=== PATIENT | female | born 1970 | race Hispanic/Latino ===

== ENCOUNTER 2018-06-29 16:27 | Emergency (ER) | payer MEDICAID ==
[2018-06-29 16:36] VITALS: BMI 26.9
[2018-06-29 17:47] LABS: BASO % 0.3 % (0.0-2.0); LYMPH # 1.8 K/uL (1.0-4.3); LYMPH % 13.9 % (20.0-40.0); MEAN CELL VOLUME 73.4 fL (81.0-99.0); MEAN CORPUSCULAR HEMOGLOBIN 22.8 pg (27.0-31.0); MEAN CORPUSCULAR HGB CONC 31.1 g/dL (33.0-37.0); MEAN PLATELET VOLUME 8.3 fL (7.2-11.7); MONO # 0.3 K/uL (0.0-0.8); MONO % 2.2 % (0.0-10.0); NEUT # 11.1 K/uL (1.8-7.0); NEUT % 83.6 % (50.0-75.0); RBC 4.81 Mil/uL (3.80-5.20); RED CELL DISTRIBUTION WIDTH 26.4 % (11.5-14.5); WHITE BLOOD COUNT 13.2 K/uL (4.8-10.8)
[2018-06-29 17:52] LABS: ALB/GLOB RATIO 1.4 (1.0-2.1); ALBUMIN 4.2 g/dL (3.5-5.0); ALT/SGPT 21 U/L (9-52); AST/SGOT 18 U/L (14-36); BLOOD UREA NITROGEN 14 mg/dL (7-17); CALCIUM 9.1 mg/dl (8.6-10.4); GFR NON-AFRICAN AMERICAN > 60
[2018-06-29 17:59] LABS: SQUAMOUS EPITHIAL 1 /hpf (0-5); URINE BACTERIA RARE (<OCC); URINE BILIRUBIN NEGATIVE (NEGATIVE); URINE BLOOD 3+ (NEGATIVE); URINE CLARITY Clear (Clear); URINE COLOR Yellow (YELLOW); URINE GLUCOSE (UA) NORMAL (Normal); URINE LEUKOCYTE ESTERASE NEG Leu/uL (Negative); URINE PROTEIN NEGATIVE (NEGATIVE); URINE UROBILINOGEN NORMAL mg/dL (0.2-1.0)
[2018-06-29 18:40] LABS: BARBITURATES, UR NEGATIVE (NEGATIVE); BENZODIAZEPINES, UR NEGATIVE (NEGATIVE); OPIATES, UR NEGATIVE (NEGATIVE); PHENCYCLIDINE, UR NEGATIVE (NEGATIVE)
--- NOTE | 2018-06-29 18:54 | C.PDOC ---
History Of Present Illness 47-year-old female, presents to the emergency department with complaints of public intoxication. Patient was found on a bench next to sister, intoxicated and EMS was called. Patient denies any HI/SI. Time Seen by Provider: 06/29/18 16:32 Chief Complaint (Nursing): Substance Abuse History Per: Patient History/Exam Limitations: no limitations Past Medical History Reviewed: Historical Data, Nursing Documentation, Vital Signs Vital Signs: Last Vital Signs Temp 98.9 F 06/29/18 18:33 Pulse 107 H 06/29/18 18:33 Resp 18 06/29/18 18:33 BP 109/69 06/29/18 18:33 Pulse Ox 100 06/29/18 18:33 - Medical History PMH: Depression Family History: States: Unknown Family Hx - Social History Hx Alcohol Use: Yes Hx Substance Use: No (Denied) - Immunization History Hx Tetanus Toxoid Vaccination: No Hx Influenza Vaccination: No (Unobtainable) Hx Pneumococcal Vaccination: No (Unobtainable) Review Of Systems Constitutional: Negative for: Fever, Chills Respiratory: Negative for: Shortness of Breath Gastrointestinal: Negative for: Nausea, Vomiting Neurological: Negative for: Weakness, Numbness Psych: Negative for: Psychosis, Suicidal ideation, Withdrawal Physical Exam - Physical Exam Appears: Non-toxic, No Acute Distress Skin: Warm, Dry, No Rash Head: Atraumatic Eye(s): bilateral: Normal Inspection Nose: Normal Oral Mucosa: Moist Lips: Normal Appearing Neck: Normal ROM Cardiovascular: Rhythm Regular, No Murmur Respiratory: Normal Breath Sounds, No Accessory Muscle Use Gastrointestinal/Abdominal: Soft, No Tenderness Back: Normal Inspection Extremity: Normal ROM, No Deformity Neurological/Psych: Oriented x3, Normal Speech ED Course And Treatment - Laboratory Results Result Diagrams: 06/29/18 17:34 06/29/18 17:34 O2 Sat by Pulse Oximetry: 100 Pulse Ox Interpretation: Normal (RA) Medical Decision Making Medical Decision Making: Nurse on the phone with sister, who is refusing to come in to take patient crisis was called. Disposition - Disposition Disposition Time: 18:59 Condition: FAIR Forms: [facility] (Central African) - Clinical Impression Clinical Impression: Alcohol intoxication - Scribe Statement The provider has reviewed the documentation as recorded by the Scribe (Chelsi Delgado) Provider Attestation: All medical record entries made by the Scribe were at my direction and personally dictated by me. I have reviewed the chart and agree that the record accurately reflects my personal performance of the history, physical exam, medical decision making, and the department course for this patient. I have also personally directed, reviewed, and agree with the discharge instructions and disposition. Physician Patient Turnover Patient Signed Over To: Nasra Downs Handoff Comments: pending crisis evaluation
[2018-06-29 20:09] VITALS: BP 112/71; PULSE 111; RESP 20; TEMP 98.5; O2SAT 99
== END 2018-06-29 20:26 | disposition home or self-care (01) ==
LOC: C.ER 16:27
DX: F10.129 Alcohol abuse with intoxication, unspecified (principal); Y90.6 Blood alcohol level of 120-199 mg/100 ml

== ENCOUNTER 2018-06-30 19:58 | Emergency (ER) | payer MEDICAID ==
[2018-06-30 19:59] VITALS: BMI 26.9
--- NOTE | 2018-06-30 20:40 | C.PDOC ---
History Of Present Illness 47 year old female, with history of substance abuse, is brought to the ED via ambulance for evaluation of alcohol intoxication. Patient admits to drinking earlier today. She denies suicidal/homicidal ideation. Time Seen by Provider: 06/30/18 20:05 Chief Complaint (Nursing): Psychiatric Evaluation History Per: Patient, EMS History/Exam Limitations: intoxication Onset/Duration Of Symptoms: Hrs Current Symptoms Are (Timing): Still Present Suicide/Self Injury Attempted (Context): None Modifying Factor(s): Alcohol Associated Symptoms: denies: Suicidal Thoughts, Suicidal Plan Involuntary Hold By: None Recent travel outside of the [place]: No Additional History Per: Patient, EMS Past Medical History Reviewed: Historical Data, Nursing Documentation, Vital Signs Vital Signs: Last Vital Signs Temp 98.5 F 06/30/18 20:17 Pulse 90 06/30/18 20:17 Resp 16 06/30/18 20:17 BP 132/89 06/30/18 20:17 Pulse Ox 97 06/30/18 20:17 - Medical History PMH: Depression Denies: Diabetes, Hepatitis, HIV, HTN, Seizures, Sexually Transmitted Disease Surgical History: No Surg Hx Family History: States: Unknown Family Hx - Social History Hx Alcohol Use: Yes Hx Substance Use: No (Denied) - Immunization History Hx Tetanus Toxoid Vaccination: No Hx Influenza Vaccination: No (Unobtainable) Hx Pneumococcal Vaccination: No (Unobtainable) Review Of Systems Psych: Positive for: Depression (EtOH intoxication ), Other. Negative for: Suicidal ideation Physical Exam - Physical Exam Appears: Non-toxic, No Acute Distress, Other (visibly intoxicated ) Skin: Normal Color, Warm, Dry Head: Atraumatic, Normacephalic Eye(s): bilateral: Normal Inspection Oral Mucosa: Moist, Other (alcohol on breath ) Neck: Supple Chest: Symmetrical Cardiovascular: Rhythm Regular Respiratory: No Accessory Muscle Use Extremity: Normal ROM Neurological/Psych: Other (arousable to touch and verbal stimuli ) ED Course And Treatment O2 Sat by Pulse Oximetry: 97 (on RA) Pulse Ox Interpretation: Normal Medical Decision Making Medical Decision Making: pt observed in nad. at 100 pm, requests dc. librium given prior to dc as pt states "she feels milldy tremouslous". no tremors noted on exam. Disposition - Disposition Disposition: HOME/ ROUTINE Disposition Time: 01:00 Condition: GOOD Additional Instructions: return to er with worsening symptoms or concerns. Instructions: Alcohol Poisoning (DC) Forms: [facility] (Tunisian) - Clinical Impression Clinical Impression: Alcohol abuse - Scribe Statement The provider has reviewed the documentation as recorded by the Scribe (Seda Vazquez) Provider Attestation: All medical record entries made by the Scribe were at my direction and personally dictated by me. I have reviewed the chart and agree that the record accurately reflects my personal performance of the history, physical exam, medical decision making, and the department course for this patient. I have also personally directed, reviewed, and agree with the discharge instructions and disposition.
[2018-07-01 01:19] VITALS: BP 128/86; PULSE 116; RESP 20; TEMP 98.8
[2018-07-02 10:06] VITALS: O2SAT 97
== END 2018-07-01 01:39 | disposition home or self-care (01) ==
LOC: C.ER 19:58
DX: F10.10 Alcohol abuse, uncomplicated (principal); F32.9 Major depressive disorder, single episode, unspecified

== ENCOUNTER 2018-11-27 11:39 | Emergency (ER) | payer MEDICAID ==
[2018-11-27 11:42] VITALS: BMI 27.2
[2018-11-27 11:45] VITALS: TEMP 98.4
--- NOTE | 2018-11-27 12:48 | C.PDOC ---
History Of Present Illness 48 y/o female presents to ED with mother requesting detox from alcohol. Mother reports patient was drinking today and is currently really intoxicated. Patient is currently asleep in the ER, will need for her to sober up to get full assessment. Time Seen by Provider: 11/27/18 11:59 Chief Complaint (Nursing): Substance Abuse History Per: Family History/Exam Limitations: intoxication Onset/Duration Of Symptoms: Hrs Current Symptoms Are (Timing): Still Present Past Medical History Reviewed: Historical Data, Nursing Documentation, Vital Signs Vital Signs: Last Vital Signs Temp 98.4 F 11/27/18 11:44 Pulse 99 H 11/27/18 11:44 Resp 20 11/27/18 11:44 BP 112/76 11/27/18 11:44 Pulse Ox 95 11/27/18 11:44 - Medical History PMH: Depression Denies: Diabetes, Hepatitis, HIV, HTN, Seizures, Sexually Transmitted Disease - [facility] INDIVIDUAL PSYCHOTHERAPY, BEHAVIORAL (07/07/18) Family History: States: No Known Family Hx - Social History Hx Alcohol Use: Yes (vodka) Hx Substance Use: No - Immunization History Hx Tetanus Toxoid Vaccination: No Hx Influenza Vaccination: No Hx Pneumococcal Vaccination: No Review Of Systems Except As Marked, All Systems Reviewed And Found Negative. Constitutional: Negative for: Fever, Chills Gastrointestinal: Negative for: Vomiting Psych: Positive for: Other (alcohol intoxication) Physical Exam - Physical Exam Appears: Non-toxic, No Acute Distress, Other (intoxicated) Skin: Normal Color, No Diaphoretic, No Rash Head: Atraumatic, Normacephalic Eye(s): bilateral: Normal Inspection Chest: No Deformity Cardiovascular: Rhythm Regular Respiratory: Normal Breath Sounds Gastrointestinal/Abdominal: Soft, No Tenderness Extremity: Normal ROM ED Course And Treatment O2 Sat by Pulse Oximetry: 95 (RA) Pulse Ox Interpretation: Normal Progress Note: Patient woke up, refused to be evaluated for detox. She is alert and oriented x 3, steady gait. Patient is requesting Librium po. Patient wants to be d/c home. Disposition - Disposition Disposition: HOME/ ROUTINE Disposition Time: 19:02 Condition: IMPROVED Forms: [facility] (Puerto Rican) - Clinical Impression Clinical Impression: Alcohol intoxication - PA / [employer] / Resident Statement MD/DO has reviewed & agrees with the documentation as recorded. - Scribe Statement The provider has reviewed the documentation as recorded by the Aichaibe Heidi Redding All medical record entries made by the Edis were at my direction and personally dictated by me. I have reviewed the chart and agree that the record accurately reflects my personal performance of the history, physical exam, medical decision making, and the department course for this patient. I have also personally directed, reviewed, and agree with the discharge instructions and disposition.
[2018-11-27 18:47] VITALS: BP 150/95; PULSE 102; RESP 18
[2018-11-27 19:02] VITALS: O2SAT 95
== END 2018-11-27 19:06 | disposition home or self-care (01) ==
LOC: C.ER 11:39
DX: F10.129 Alcohol abuse with intoxication, unspecified (principal); Y90.9 Presence of alcohol in blood, level not specified

== ENCOUNTER 2019-01-23 15:02 | Emergency (ER) | payer MEDICAID ==
[2019-01-23 15:02] VITALS: BMI 27.2
[2019-01-23 15:11] VITALS: RESP 18
--- NOTE | 2019-01-23 16:27 | C.PDOC ---
History Of Present Illness 48 y/o female brought to the ER by EMS after sister found her intoxicated and "smoking" at home. She admits to drinking alcohol today and is not willing to give too much information. Time Seen by Provider: 01/23/19 15:15 Chief Complaint (Nursing): Substance Abuse History Per: Patient, EMS, Family (sister) History/Exam Limitations: intoxication Current Symptoms Are (Timing): Still Present Suicide/Self Injury Attempted (Context): None Modifying Factor(s): Alcohol Severity: Moderate Involuntary Hold By: Emergency Physician Past Medical History Reviewed: Historical Data, Nursing Documentation, Vital Signs Vital Signs: Last Vital Signs Temp 98.3 F 01/23/19 15:06 Pulse 85 01/23/19 15:06 Resp 18 01/23/19 15:06 BP 117/79 01/23/19 15:06 Pulse Ox 94 L 01/23/19 15:06 Primary Care Provider: FAMILY PROVIDER,NO - Medical History PMH: Depression - [facility] Procedures INDIVIDUAL PSYCHOTHERAPY, BEHAVIORAL (07/07/18) Family History: States: No Known Family Hx - Social History Hx Alcohol Use: Yes Hx Substance Use: No - Immunization History Hx Tetanus Toxoid Vaccination: No Hx Influenza Vaccination: No Hx Pneumococcal Vaccination: No Review Of Systems Review Of Systems: ROS cannot be obtained secondary to pt's inabilty to answer questions. (pending sobriety) Physical Exam - Physical Exam Appears: Non-toxic, Other (appears intoxicated) Skin: Warm, Dry Head: Atraumatic, Normacephalic, No Swelling, No Abrasion, No Laceration Eye(s): bilateral: Normal Inspection, PERRL, EOMI Oral Mucosa: Moist Throat: Normal Neck: No Midline Cervical Tenderness, No Paracervical Tenderness, Supple Chest: Symmetrical Cardiovascular: Rhythm Regular Respiratory: Normal Breath Sounds, No Rales, No Rhonchi, No Wheezing Gastrointestinal/Abdominal: Normal Exam, Bowel Sounds, Soft, No Tenderness Back: No CVA Tenderness Extremity: Normal ROM (x4), No Calf Tenderness, No Swelling Extremity: Bilateral: Atraumatic, Normal Color And Temperature Neurological/Psych: Other ( arousable, able to follow commands) ED Course And Treatment O2 Sat by Pulse Oximetry: 94 (RA) Pulse Ox Interpretation: Normal Progress Note: Accucheck ordered and reviewed. Patient pending sobriety. 6:35pm- Patient still intoxicated, unable to ambulate. Disposition - Disposition Disposition Time: 19:00 Condition: STABLE Forms: [facility] (Khmer) - Clinical Impression Clinical Impression: Alcohol intoxication - Scribe Statement The provider has reviewed the documentation as recorded by the Scribe Bernie Johns Provider Attestation: All medical record entries made by the Scribe were at my direction and personally dictated by me. I have reviewed the chart and agree that the record accurately reflects my personal performance of the history, physical exam, medical decision making, and the department course for this patient. I have also personally directed, reviewed, and agree with the discharge instructions and disposition. Physician Patient Turnover Patient Signed Over To: Kwame Craig Handoff Comments: pending sobriety
[2019-01-23 20:18] VITALS: BP 133/78; PULSE 88; TEMP 97.9; O2SAT 99
== END 2019-01-23 21:04 | disposition home or self-care (01) ==
LOC: C.ER 15:02
DX: F10.129 Alcohol abuse with intoxication, unspecified (principal); Y90.9 Presence of alcohol in blood, level not specified